=== PATIENT | male | born 1950 | race Caucasian/White ===

== ENCOUNTER 2023-10-06 09:45 | Outpatient (CLI) | payer BC, MEDICARE | END 2023-10-06 09:46 | disposition home or self-care (01) | LOC: CSHRAD 09:45 | PROVIDERS: ATTEND Urology | DX: Z01.818 Encounter for other preprocedural examination (principal); I51.7 Cardiomegaly; Z95.810 Presence of automatic (implantable) cardiac defibrillator | CPT/HCPCS: 71045 ==

== ENCOUNTER 2023-10-07 10:19 | Outpatient (CLI) | payer BC, MEDICARE ==
[~2023-10-07 10:19] MED LIST: Magnevist 469MG/ML 20 ML VIAL ONE
== END 2023-10-07 10:20 | disposition home or self-care (01) ==
LOC: CSHSPEC 10:19
PROVIDERS: ATTEND Urology
DX: R97.20 Elevated prostate specific antigen [PSA] (principal); Z96.642 Presence of left artificial hip joint
CPT/HCPCS: 72197; 82565; A9579